=== PATIENT | male | born 1955 | race Caucasian/White ===

== ENCOUNTER 2017-06-04 12:57 | Emergency (ER) | payer OTHER ==
[~2017-06-04] VITALS: Ht 175.3 cm; Wt 84.4 kg
[~2017-06-04 12:57] MED LIST: ALLOPURINOL100 MG PO; ARAVA20 MG PO; HECORIA0.5 MG PO; KPHOS PO; LASIX20 MG PO; LASIX40 MG PO; MAGNESIUM OXID400 MG PO; MG PLUS PROTEIN1 TAB PO; NEU300 PO; NOR10T PO; NORVASC2.5 MG PO; PEPCID20 MG PO; PREDNISONE2.5 MG PO; SODIUM BICARBO650 MG PO; TOPROL XL25 MG PO; ZOCOR20 MG PO
[2017-06-04 13:09] VITALS: Ht 175.3 cm; Wt 84.4 kg
[2017-06-04 13:44] LABS: microscopic required? NO
[2017-06-04 13:49] LABS: BASOPHIL % 0.9 % (0-2); PLATELET COUNT 181 x10^3mcL (130-400)
[2017-06-04 13:50] LABS: urine erythrocyte NEGATIVE (NEGATIVE)
[2017-06-04 13:52] LABS: RED CELL DISTRIBUTION WIDTH 15.4 % (11.5-14.5)
[2017-06-04 13:58] LABS: CALCIUM 9.1 mg/dL (8.5-10.1); CARBON DIOXIDE 26.4 mmol/L (21-32); CHLORIDE SERUM 103 mmol/L (98-107); GFR1 > 60 mL/min; GLUCOSE SERUM 120 mg/dL (74-106); POTASSIUM SERUM 3.4 mmol/L (3.5-5.1); SODIUM SERUM 139 mmol/L (136-145)
[2017-06-04 14:02] LABS: ALBUMIN 3.4 g/dL (3.4-5.0); ALKALINE PHOSPHATASE 75 U/L (46-116); ALT/SGPT 37 U/L (16-63); AMYLASE 48 U/L (25-115); AST/SGOT 32 U/L (15-37); BILIRUBIN TOTAL 0.69 mg/dL (0.20-1.00); LIPASE 83 IU/L (73-393); TOTAL PROTEIN, SERUM 7.8 g/dL (6.4-8.2)
[2017-06-04 15:33] VITALS: BP 105/69
== END 2017-06-04 15:33 | disposition home or self-care (01) ==
LOC: ED 12:57
PROVIDERS: Emergency Medicine
DX: R11.2 Nausea with vomiting, unspecified (principal); R19.7 Diarrhea, unspecified; R10.31 Right lower quadrant pain; I10 Essential (primary) hypertension; E78.00 Pure hypercholesterolemia, unspecified; M10.9 Gout, unspecified
CPT/HCPCS: 83880

== ENCOUNTER 2018-04-18 16:49 | Inpatient (IN) | payer OTHER ==
[~2018-04-18] VITALS: Ht 175.3 cm; Wt 81.6 kg
[2018-04-18 17:04] VITALS: Ht 175.3 cm; Wt 81.6 kg
[2018-04-18 17:41] LABS: BASOPHIL % 0.4 % (0-2); PLATELET COUNT 206 x10^3mcL (130-400)
[2018-04-18 17:42] LABS: RED CELL DISTRIBUTION WIDTH 15.7 % (11.5-14.5)
[2018-04-18 17:48] LABS: CALCIUM 9.1 mg/dL (8.5-10.1); CARBON DIOXIDE 25.2 mmol/L (21-32); CHLORIDE SERUM 108 mmol/L (98-107); CREATININE SERUM 0.8 mg/dL (0.7-1.3); GFR1 > 60 mL/min; GLUCOSE SERUM 100 mg/dL (74-106); POTASSIUM SERUM 4.1 mmol/L (3.5-5.1); SODIUM SERUM 139 mmol/L (136-145)
[2018-04-18 18:03] LABS: ALBUMIN 3.9 g/dL (3.4-5.0); ALKALINE PHOSPHATASE 77 U/L (46-116); ALT/SGPT 26 U/L (16-63); AST/SGOT 38 U/L (15-37)
[2018-04-18 18:17] LABS: TOTAL PROTEIN, SERUM 8.2 g/dL (6.4-8.2)
[2018-04-18] MEDS ORDERED: ALLOPURINOL100 MG PO (18:21)
[2018-04-18] MEDS ORDERED: PROGRAF1 MG PO (18:21)
[2018-04-18] MEDS ORDERED: LEFLUNOMIDE20 MG PO (18:23)
[2018-04-18 18:24] LABS: ERYTHROCYTE SED RATE 28 mm/hr (0-20)
[2018-04-18] MEDS ORDERED: TOPROL XL25 MG PO ×2 (18:24→18:25)
[2018-04-18] MEDS ORDERED: AMLODIPINE BESY10 M2 PO (18:26)
[2018-04-18] MEDS ORDERED: PREDNISONE1 MG PO (18:28)
[2018-04-18] MEDS ORDERED: VITAMIN D50000 I4 PO (18:30)
[2018-04-18] MEDS ORDERED: SIMVASTATIN10 M1 PO (18:31)
[2018-04-18] MEDS ORDERED: NAPROXEN500 MG PO (18:32)
[2018-04-18 19:18] LABS: T3 TOTAL 0.97 ng/mL
[2018-04-18 19:46] LABS: FREE T4 0.78 ng/dL (0.76-1.46); T4(THYROXINE) 6.2 ug/dL (4.7-13.3)
[2018-04-18 21:24] LABS: PHOSPHOROUS 3.3 mg/dL (2.5-4.9)
[2018-04-18 21:26] LABS: MAGNESIUM 1.7 mg/dL (1.8-2.4)
[2018-04-18 21:27] LABS: CHOLESTEROL/HDL RATIO 2.4
[2018-04-18 23:14] VITALS: BP 113/83
[2018-04-19 05:34] VITALS: BP 104/53
[2018-04-19 06:40] LABS: BASOPHIL % 0.4 % (0-2); CALCIUM 8.6 mg/dL (8.5-10.1); CARBON DIOXIDE 28.4 mmol/L (21-32); CHLORIDE SERUM 106 mmol/L (98-107); CREATININE SERUM 0.9 mg/dL (0.7-1.3); GFR1 > 60 mL/min; GLUCOSE SERUM 76 mg/dL (74-106); MAGNESIUM 1.8 mg/dL (1.8-2.4); PHOSPHOROUS 3.5 mg/dL (2.5-4.9); PLATELET COUNT 176 x10^3mcL (130-400); POTASSIUM SERUM 4.4 mmol/L (3.5-5.1); SODIUM SERUM 141 mmol/L (136-145)
[2018-04-19 06:41] LABS: microscopic required? NO
[2018-04-19 06:46] LABS: RED CELL DISTRIBUTION WIDTH 15.8 % (11.5-14.5)
[2018-04-19 06:57] LABS: UA SPECIFIC GRAVITY 1.015 (1.005-1.035); urine erythrocyte NEGATIVE (NEGATIVE)
[2018-04-19 07:12] LABS: AMPHETAMINE QUAL UR NONE DETECTED (See below)
[2018-04-19 10:28] VITALS: BP 118/78
[2018-04-19 17:28] VITALS: BP 129/86
[2018-04-19 22:04] VITALS: BP 133/87
[2018-04-20 05:57] VITALS: BP 129/91
[2018-04-20 06:09] LABS: BASOPHIL % 0.5 % (0-2); PLATELET COUNT 170 x10^3mcL (130-400)
[2018-04-20 06:10] LABS: RED CELL DISTRIBUTION WIDTH 15.6 % (11.5-14.5)
[2018-04-20 06:48] LABS: CALCIUM 9.1 mg/dL (8.5-10.1); CARBON DIOXIDE 26.2 mmol/L (21-32); CHLORIDE SERUM 107 mmol/L (98-107); CREATININE SERUM 0.9 mg/dL (0.7-1.3); GFR1 > 60 mL/min; GLUCOSE SERUM 77 mg/dL (74-106); MAGNESIUM 1.7 mg/dL (1.8-2.4); PHOSPHOROUS 3.1 mg/dL (2.5-4.9); SODIUM SERUM 143 mmol/L (136-145)
[2018-04-20 08:13] VITALS: BP 124/88
[2018-04-20 12:14] VITALS: BP 136/91
[2018-04-20 16:29] VITALS: BP 137/88
[2018-04-21 05:14] VITALS: BP 131/87
[2018-04-21 06:56] LABS: BASOPHIL % 0.5 % (0-2); PLATELET COUNT 173 x10^3mcL (130-400)
[2018-04-21 06:59] LABS: RED CELL DISTRIBUTION WIDTH 15.4 % (11.5-14.5)
[2018-04-21 07:10] LABS: CALCIUM 8.8 mg/dL (8.5-10.1); CARBON DIOXIDE 26.7 mmol/L (21-32); CHLORIDE SERUM 110 mmol/L (98-107); CREATININE SERUM 0.9 mg/dL (0.7-1.3); GFR1 > 60 mL/min; GLUCOSE SERUM 85 mg/dL (74-106); MAGNESIUM 1.9 mg/dL (1.8-2.4); PHOSPHOROUS 3.2 mg/dL (2.5-4.9); POTASSIUM SERUM 4.1 mmol/L (3.5-5.1); SODIUM SERUM 145 mmol/L (136-145)
[2018-04-21 10:23] VITALS: BP 144/101
[2018-04-21 13:20] VITALS: BP 144/101
[2018-04-21 18:31] VITALS: BP 128/93
== END 2018-04-21 18:24 | disposition home health service (06) | DRG 383 ==
LOC: ED 16:49 → MU 18:36
PROVIDERS: Emergency Medicine; Family Medicine
PROC: 3E02340 Introduction of Influenza Vaccine into Muscle, Percutaneous Approach (ICD-10-PCS; 2018-04-19)
PROC: 0HBKXZX Excision of Right Lower Leg Skin, External Approach, Diagnostic (ICD-10-PCS; principal; 2018-04-20)
PROC: 05HY33Z Insertion of Infusion Device into Upper Vein, Percutaneous Approach (ICD-10-PCS; 2018-04-21)
PROC: B54MZZA Ultrasonography of Right Upper Extremity Veins, Guidance (ICD-10-PCS; 2018-04-21)
DX: L03.115 Cellulitis of right lower limb (principal); E83.42 Hypomagnesemia; L97.818 Non-pressure chronic ulcer of other part of right lower leg with other specified severity; B96.89 Other specified bacterial agents as the cause of diseases classified elsewhere; M10.9 Gout, unspecified; I12.9 Hypertensive chronic kidney disease with stage 1 through stage 4 chronic kidney disease, or unspecified chronic kidney disease; N18.9 Chronic kidney disease, unspecified; Z94.0 Kidney transplant status; Z68.26 Body mass index [BMI] 26.0-26.9, adult; Z82.3 Family history of stroke; Z82.0 Family history of epilepsy and other diseases of the nervous system; Z84.1 Family history of disorders of kidney and ureter; Z82.49 Family history of ischemic heart disease and other diseases of the circulatory system; Z23 Encounter for immunization; Z79.899 Other long term (current) drug therapy
CPT/HCPCS: 83880; 84439; 90658; C1751; J0295; J0690; J0696; J1885; J1956; J2001; J2060; J2270; J2405; J2543; J3370; J7030; J7050; J7512; Q0092

== ENCOUNTER 2018-04-24 16:03 | Emergency (ER) | payer OTHER ==
[~2018-04-24] VITALS: Ht 175.3 cm; Wt 83.0 kg
[~2018-04-24 16:03] MED LIST changes: +AMLODIPINE BESY10 M2 PO; +LEFLUNOMIDE20 MG PO; +NAPROXEN500 MG PO; +PREDNISONE1 MG PO; +PROGRAF1 MG PO; +SIMVASTATIN10 M1 PO; +VITAMIN D50000 I4 PO
[2018-04-24 16:15] VITALS: Ht 175.3 cm; Wt 83.0 kg
[2018-04-24 17:48] VITALS: BP 126/96
== END 2018-04-24 17:48 | disposition home or self-care (01) ==
LOC: ED 16:03
DX: S81.801A Unspecified open wound, right lower leg, initial encounter (principal); I10 Essential (primary) hypertension; Z94.0 Kidney transplant status; Z98.890 Other specified postprocedural states; X58.XXXA Exposure to other specified factors, initial encounter; Y93.89 Activity, other specified; Y92.89 Other specified places as the place of occurrence of the external cause; Y99.8 Other external cause status

== ENCOUNTER 2018-04-28 10:59 | Emergency (ER) | payer OTHER ==
[~2018-04-28] VITALS: Ht 175.3 cm; Wt 83.9 kg
[2018-04-28 11:19] VITALS: Ht 175.3 cm; Wt 83.9 kg
[2018-04-28 13:18] LABS: CARBON DIOXIDE 26.8 mmol/L (21-32); CHLORIDE SERUM 106 mmol/L (98-107); CREATININE SERUM 0.9 mg/dL (0.7-1.3); GFR1 > 60 mL/min; GLUCOSE SERUM 96 mg/dL (74-106); POTASSIUM SERUM 3.4 mmol/L (3.5-5.1); SODIUM SERUM 141 mmol/L (136-145)
[2018-04-28 13:22] LABS: ALBUMIN 3.4 g/dL (3.4-5.0); ALKALINE PHOSPHATASE 86 U/L (46-116); ALT/SGPT 23 U/L (16-63); AST/SGOT 27 U/L (15-37); BILIRUBIN TOTAL 0.57 mg/dL (0.20-1.00); TOTAL PROTEIN, SERUM 7.7 g/dL (6.4-8.2)
[2018-04-28 13:33] LABS: BASOPHIL % 1.4 % (0-2); PLATELET COUNT 189 x10^3mcL (130-400)
[2018-04-28 13:35] LABS: RED CELL DISTRIBUTION WIDTH 15.6 % (11.5-14.5)
[2018-04-28 14:29] VITALS: BP 142/90
== END 2018-04-28 14:29 | disposition home or self-care (01) ==
LOC: ED 10:59
PROVIDERS: Emergency Medicine
DX: L03.115 Cellulitis of right lower limb (principal); I10 Essential (primary) hypertension; M10.9 Gout, unspecified; Z94.0 Kidney transplant status
CPT/HCPCS: 36415

== ENCOUNTER 2018-05-26 13:26 | Emergency (ER) | payer OTHER ==
[~2018-05-26] VITALS: Ht 175.3 cm; Wt 83.0 kg
[2018-05-26 13:40] VITALS: Ht 175.3 cm; Wt 83.0 kg
[2018-05-26 17:05] VITALS: BP 138/74
== END 2018-05-26 17:05 | disposition home or self-care (01) ==
LOC: ED 13:26
DX: L97.818 Non-pressure chronic ulcer of other part of right lower leg with other specified severity (principal); I10 Essential (primary) hypertension; Z98.890 Other specified postprocedural states
CPT/HCPCS: 82962; J0696; Q0092

== ENCOUNTER 2018-05-26 23:11 | Emergency (ER) | payer OTHER ==
[~2018-05-26] VITALS: Ht 175.3 cm; Wt 80.7 kg
[2018-05-26 23:22] VITALS: Ht 175.3 cm; Wt 80.7 kg
[2018-05-26 23:53] LABS: BASOPHIL % 0.5 % (0-2); PLATELET COUNT 184 x10^3mcL (130-400)
[2018-05-26 23:54] LABS: RED CELL DISTRIBUTION WIDTH 14.8 % (11.5-14.5)
[2018-05-27 00:24] LABS: T3 TOTAL 1.05 ng/mL
[2018-05-27 00:25] LABS: FREE T4 0.87 ng/dL (0.76-1.46)
[2018-05-27 00:34] LABS: CALCIUM 8.9 mg/dL (8.5-10.1); CARBON DIOXIDE 24.5 mmol/L (21-32); CHLORIDE SERUM 101 mmol/L (98-107); CREATININE SERUM 0.9 mg/dL (0.7-1.3); GFR1 > 60 mL/min; GLUCOSE SERUM 97 mg/dL (74-106); POTASSIUM SERUM 3.8 mmol/L (3.5-5.1); SODIUM SERUM 135 mmol/L (136-145)
[2018-05-27 00:39] LABS: ALBUMIN 3.6 g/dL (3.4-5.0); ALKALINE PHOSPHATASE 77 U/L (46-116); ALT/SGPT 26 U/L (16-63); AST/SGOT 40 U/L (15-37); BILIRUBIN TOTAL 0.3 mg/dL (0.20-1.00); CHOLESTEROL 168 mg/dL (<200); CHOLESTEROL/HDL RATIO 3.7; HDL CHOLESTEROL 45 mg/dL (40-60); LIPASE 104 IU/L (73-393); TOTAL PROTEIN, SERUM 7.7 g/dL (6.4-8.2); TRIGLYCERIDES 213 mg/dL (<150)
[2018-05-27 01:33] VITALS: BP 129/76
== END 2018-05-27 01:33 | disposition home or self-care (01) ==
LOC: ED 23:11
PROVIDERS: Specialist
DX: R42 Dizziness and giddiness (principal); R11.0 Nausea; I10 Essential (primary) hypertension; M10.9 Gout, unspecified
CPT/HCPCS: 83880; 84439; J2405; J7030

== ENCOUNTER 2018-08-09 13:22 | Inpatient (IN) | payer OTHER ==
[~2018-08-09] VITALS: Ht 175.3 cm; Wt 82.1 kg
[2018-08-09 15:17] LABS: BASOPHIL % 0.2 % (0-2); PLATELET COUNT 170 x10^3mcL (130-400)
[2018-08-09 15:18] LABS: RED CELL DISTRIBUTION WIDTH 15.7 % (11.5-14.5)
[2018-08-09 15:26] LABS: CALCIUM 9.2 mg/dL (8.5-10.1); CARBON DIOXIDE 24.7 mmol/L (21-32); CHLORIDE SERUM 103 mmol/L (98-107); CREATININE SERUM 0.9 mg/dL (0.7-1.3); GFR1 > 60 mL/min; GLUCOSE SERUM 130 mg/dL (74-106); POTASSIUM SERUM 3.7 mmol/L (3.5-5.1); SODIUM SERUM 139 mmol/L (136-145)
[2018-08-09 15:30] LABS: ALBUMIN 3.7 g/dL (3.4-5.0); ALKALINE PHOSPHATASE 70 U/L (46-116); ALT/SGPT 28 U/L (16-63); AST/SGOT 29 U/L (15-37); BILIRUBIN TOTAL 1.1 mg/dL (0.20-1.00); TOTAL PROTEIN, SERUM 8.2 g/dL (6.4-8.2)
[2018-08-09 17:26] LABS: CHOLESTEROL/HDL RATIO 3.4; MAGNESIUM 1.8 mg/dL (1.8-2.4); PHOSPHOROUS 3.1 mg/dL (2.5-4.9)
[2018-08-09 18:20] VITALS: BP 129/105
[2018-08-09 18:26] VITALS: Ht 175.3 cm; Wt 82.1 kg
[2018-08-09 20:36] VITALS: BP 137/89
[2018-08-10 05:29] VITALS: BP 110/78
[2018-08-10 06:16] LABS: BASOPHIL % 0.3 % (0-2); PLATELET COUNT 149 x10^3mcL (130-400)
[2018-08-10 06:25] LABS: CALCIUM 8.5 mg/dL (8.5-10.1); CARBON DIOXIDE 27.6 mmol/L (21-32); CHLORIDE SERUM 106 mmol/L (98-107); CREATININE SERUM 0.9 mg/dL (0.7-1.3); GFR1 > 60 mL/min; GLUCOSE SERUM 91 mg/dL (74-106); POTASSIUM SERUM 4.4 mmol/L (3.5-5.1); SODIUM SERUM 140 mmol/L (136-145)
[2018-08-10 06:42] LABS: RED CELL DISTRIBUTION WIDTH 15.7 % (11.5-14.5)
[2018-08-10 09:19] VITALS: BP 134/92
[2018-08-10 10:37] LABS: microscopic required? NO
[2018-08-10 10:55] LABS: AMPHETAMINE QUAL UR NONE DETECTED (See below)
[2018-08-10 11:29] LABS: UA SPECIFIC GRAVITY 1.015 (1.005-1.035); urine erythrocyte NEGATIVE (NEGATIVE)
[2018-08-10 12:28] VITALS: BP 127/94
[2018-08-10 17:11] VITALS: BP 136/96
[2018-08-10 20:35] VITALS: BP 157/98
[2018-08-11 05:36] VITALS: BP 128/89
[2018-08-11 06:10] LABS: CALCIUM 8.7 mg/dL (8.5-10.1); CARBON DIOXIDE 27.6 mmol/L (21-32); CHLORIDE SERUM 104 mmol/L (98-107); CREATININE SERUM 0.8 mg/dL (0.7-1.3); GFR1 > 60 mL/min; GLUCOSE SERUM 108 mg/dL (74-106); POTASSIUM SERUM 3.5 mmol/L (3.5-5.1); SODIUM SERUM 138 mmol/L (136-145)
[2018-08-11 06:41] LABS: BASOPHIL % 0.4 % (0-2); PLATELET COUNT 156 x10^3mcL (130-400)
[2018-08-11 06:49] LABS: RED CELL DISTRIBUTION WIDTH 15.8 % (11.5-14.5)
[2018-08-11 10:42] VITALS: BP 139/97
[2018-08-11] MEDS ORDERED: CLEOCIN HCL300 MG PO (11:18)
[2018-08-11 13:05] VITALS: BP 139/97
== END 2018-08-11 14:00 | disposition home or self-care (01) | DRG 361 ==
LOC: ED 13:22 → MU 16:49 → DU 16:49 → MU 08-11 10:00
PROVIDERS: Emergency Medicine; ADMIT Internal Medicine
PROC: 0YBH0ZZ Excision of Right Lower Leg, Open Approach (ICD-10-PCS; principal; 2018-08-10)
DX: L03.115 Cellulitis of right lower limb (principal); L97.919 Non-pressure chronic ulcer of unspecified part of right lower leg with unspecified severity; Z94.0 Kidney transplant status; I25.10 Atherosclerotic heart disease of native coronary artery without angina pectoris; I10 Essential (primary) hypertension; M10.9 Gout, unspecified; Z82.3 Family history of stroke; Z84.1 Family history of disorders of kidney and ureter; Z82.0 Family history of epilepsy and other diseases of the nervous system; D72.829 Elevated white blood cell count, unspecified; E78.5 Hyperlipidemia, unspecified; R73.03 Prediabetes
CPT/HCPCS: 83880; J1644; J3010; J3370; J3490; J7030; J7512; Q0092

== ENCOUNTER 2018-10-01 17:25 | Emergency (ER) | payer OTHER ==
[~2018-10-01] VITALS: Ht 175.3 cm; Wt 82.1 kg
[~2018-10-01 17:25] MED LIST changes: +CLEOCIN HCL300 MG PO
[2018-10-01 17:34] VITALS: Ht 175.3 cm; Wt 82.1 kg
[2018-10-01 20:43] VITALS: BP 149/99
== END 2018-10-01 20:43 | disposition home or self-care (01) ==
LOC: ED 17:25
DX: F12.929 Cannabis use, unspecified with intoxication, unspecified (principal); I10 Essential (primary) hypertension; Z94.0 Kidney transplant status

== ENCOUNTER 2018-11-27 12:33 | Emergency (ER) | payer OTHER ==
[~2018-11-27] VITALS: Ht 175.3 cm; Wt 79.8 kg
[2018-11-27 13:06] VITALS: Ht 175.3 cm; Wt 79.8 kg
[2018-11-27 14:57] LABS: BASOPHIL % 1.2 % (0-2); PLATELET COUNT 213 x10^3mcL (130-400)
[2018-11-27 14:58] LABS: RED CELL DISTRIBUTION WIDTH 16.4 % (11.5-14.5)
[2018-11-27 15:06] LABS: CALCIUM 9.7 mg/dL (8.5-10.1); CARBON DIOXIDE 28.5 mmol/L (21-32); CHLORIDE SERUM 104 mmol/L (98-107); CREATININE SERUM 0.7 mg/dL (0.7-1.3); GFR1 > 60 mL/min; GLUCOSE SERUM 89 mg/dL (74-106); SODIUM SERUM 141 mmol/L (136-145)
[2018-11-27 15:11] LABS: ALBUMIN 3.6 g/dL (3.4-5.0); ALKALINE PHOSPHATASE 71 U/L (46-116); ALT/SGPT 24 U/L (16-63); AST/SGOT 21 U/L (15-37); BILIRUBIN TOTAL 0.9 mg/dL (0.20-1.00)
[2018-11-27 18:16] VITALS: BP 124/86
== END 2018-11-27 15:46 | disposition home or self-care (01) ==
LOC: ED 12:33
PROVIDERS: Emergency Medicine
DX: R42 Dizziness and giddiness (principal); R05 Cough; R11.0 Nausea; I10 Essential (primary) hypertension; Z98.890 Other specified postprocedural states
CPT/HCPCS: 36415; Q0162